=== PATIENT | female | born 1985 | race African-American/Black ===

== ENCOUNTER 2017-07-21 12:39 | Emergency (ER) | payer OTHER ==
[~2017-07-21] VITALS: Ht 170.2 cm; Wt 78.6 kg
[2017-07-21] MEDS ORDERED: MOTRIN800 MG PO (13:45)
[2017-07-21] MEDS ORDERED: BACTRIM,SEPT1 TABLET PO (13:45)
[2017-07-21 14:05] VITALS: BP 107/67
== END 2017-07-21 14:05 | disposition home or self-care (01) ==
LOC: EME 12:39
DX: L02.412 Cutaneous abscess of left axilla (principal); F17.200 Nicotine dependence, unspecified, uncomplicated
CPT/HCPCS: 99281; 99283

== ENCOUNTER 2017-09-13 16:51 | Emergency (ER) | payer OTHER ==
[~2017-09-13] VITALS: Ht 170.2 cm; Wt 78.1 kg
[~2017-09-13 16:51] MED LIST: BACTRIM,SEPT1 TABLET PO; MOTRIN800 MG PO
[2017-09-13 18:30] VITALS: BP 120/88
[2017-09-13] MEDS ORDERED: CLEOCIN150 MG PO (18:35)
== END 2017-09-13 18:35 | disposition home or self-care (01) ==
LOC: EME 16:51
DX: L02.412 Cutaneous abscess of left axilla (principal)
CPT/HCPCS: 99281; 99283

== ENCOUNTER 2017-10-20 21:57 | Emergency (ER) | payer OTHER ==
[~2017-10-20] VITALS: Ht 170.2 cm; Wt 78.1 kg
[~2017-10-20 21:57] MED LIST changes: +CLEOCIN150 MG PO
[2017-10-21] MEDS ORDERED: KEFLEX500 MG PO (01:00)
[2017-10-21] MEDS ORDERED: BACTRIM,SEPT1 TABLET PO (01:00)
[2017-10-21] MEDS ORDERED: MOTRIN800 MG PO (01:00)
[2017-10-21 01:24] VITALS: BP 120/79
== END 2017-10-21 01:24 | disposition home or self-care (01) ==
LOC: EME 21:57
DX: L02.412 Cutaneous abscess of left axilla (principal); F17.200 Nicotine dependence, unspecified, uncomplicated
CPT/HCPCS: 99281; 99284

== ENCOUNTER 2017-12-30 07:34 | Emergency (ER) | payer OTHER ==
[~2017-12-30] VITALS: Ht 170.2 cm; Wt 75.8 kg
[~2017-12-30 07:34] MED LIST changes: +KEFLEX500 MG PO
[2017-12-30] MEDS ORDERED: LORTAB 5-325 M1 EACH PO (09:45)
[2017-12-30] MEDS ORDERED: CLEOCIN300 MG PO (09:45)
[2017-12-30] MEDS ORDERED: MOTRIN800 MG PO (09:45)
[2017-12-30 10:14] VITALS: BP 109/81
== END 2017-12-30 10:16 | disposition home or self-care (01) ==
LOC: EME 07:34
PROC: 0H9AXZZ Drainage of Inguinal Skin, External Approach (ICD-10-PCS; principal; 2017-12-30)
DX: L73.2 Hidradenitis suppurativa (principal); L02.214 Cutaneous abscess of groin; M79.622 Pain in left upper arm; F17.200 Nicotine dependence, unspecified, uncomplicated
CPT/HCPCS: 87205; 99281; 99284